=== PATIENT | female | born 1940 | race Caucasian/White ===

== ENCOUNTER 2018-06-17 06:48 | Emergency (ER) | payer BC, MEDICARE ==
[2018-06-17 06:55] VITALS: BP 155/59; PULSE 68; RESP 18; TEMP 97.8
--- NOTE | 2018-06-17 07:30 | ED ---
General Adult HPI - General Chief complaint: Fall Stated complaint: FALL Time Seen by Provider: 06/17/18 07:23 Source: patient, family, RN notes reviewed Mode of arrival: ambulatory Limitations: no limitations - History of Present Illness Initial comments: Patient is a pleasant 78-year-old female presenting to the emergency department following a fall. Incident occurred last night prior to going to bed. Patient tripped on her sweater. Patient has taken ibuprofen and iced forearm with improvement of symptoms. Patient is able to move her arm. Discomfort is essentially right upper arm. Patient states she may have slightly struck her head. Patient has not noticed any swelling. No loss of consciousness. No confusion. No weakness. No visual change. No speech problems. Patient does not take any blood thinners. - Related Data Home Medications Medication Instructions Recorded Confirmed ARIPiprazole [Abilify] 30 mg PO HS@209911/22/15 06/17/18 Acetaminophen Tab [Tylenol] 500 mg PO BID PRN 11/22/15 06/17/18 Aspirin [Adult Low Dose Aspirin EC] 81 mg PO DAILY@0911/22/15 06/17/18 Carvedilol [Coreg] 6.25 mg PO DAILY@89911/22/15 06/17/18 Clotrimazole Cream [Lotrimin Cream] 1 applic TOPICAL BID@899,209911/22/15 Escitalopram [Lexapro] 10 mg PO DAILY@169911/22/15 06/17/18 Furosemide [Lasix] 40 mg PO DAILY@0911/22/15 06/17/18 Glimepiride [Amaryl] 2 mg PO BID@0900,169911/22/15 06/17/18 Hydrocortisone Cream 1 applic TOPICAL Q48H PRN 11/22/15 06/17/18 [Hydrocortisone 2.5% Cream] Melatonin 10 mg PO HS@209911/22/15 06/17/18 Simvastatin [Zocor] 20 mg PO HS@209911/22/15 06/17/18 amLODIPine [Norvasc] 10 mg PO DAILY@0900 11/22/15 06/17/18 metFORMIN HCL 1,000 mg PO BID@0900,1700 11/22/15 06/17/18 Sodium Bicarbonate 650 mg PO TID@0900,1700,2100 12/14/15 06/17/18 Cholecalciferol [Vitamin D3] 1,000 unit PO DAILY 12/30/15 06/17/18 Pioglitazone HCl [Actos] 30 mg PO DAILY 12/30/15 06/17/18 Previous Rx's Medication Instructions Recorded Ceftaroline Fosamil [Teflaro] 300 mg IVPB Q12H #26 bag 01/10/16 Allergies Allergy/AdvReac Type Severity Reaction Status Date / Time No Known Allergies Allergy Verified 06/17/18 06:56 Review of Systems ROS Statement: Those systems with pertinent positive or pertinent negative responses have been documented in the HPI. ROS Other: All systems not noted in ROS Statement are negative. Constitutional: Denies: fever Eyes: Denies: eye pain ENT: Denies: ear pain Respiratory: Denies: cough Cardiovascular: Denies: chest pain Endocrine: Denies: fatigue Gastrointestinal: Denies: abdominal pain Genitourinary: Denies: dysuria Musculoskeletal: Denies: back pain Skin: Denies: rash Neurological: Denies: headache, weakness, confusion, abnormal gait Past Medical History Past Medical History: Dementia, Diabetes Mellitus, Hyperlipidemia, Hypertension , Myocardial Infarction ([place]), Osteoarthritis (OA), Rheumatoid Arthritis (RA) Last Myocardial Infarction Date:: 1992 History of Any Multi-Drug Resistant Organisms: MRSA Date of last positivie culture/infection: 01/03/16 MDRO Source:: ABDOMEN Past Surgical History: Adenoidectomy, Appendectomy, Bowel Resection, Cholecystectomy, Ear Surgery, Heart Catheterization With Stent, Hysterectomy, Tonsillectomy Additional Past Surgical History / Comment(s): pt's family stated the pt is a paranoid schizophrenic and has no cardiac history. Past Anesthesia/Blood Transfusion Reactions: No Reported Reaction Date of Last Stent Placement:: 1992 Past Psychological History: Anxiety, Schizophrenia Smoking Status: Never smoker - Past Family History Father Family Medical History: Myocardial Infarction ([place]) Mother Family Medical History: Myocardial Infarction ([place]) General Exam Limitations: no limitations General appearance: alert, in no apparent distress Head exam: Present: atraumatic, normocephalic, normal inspection Eye exam: Present: normal appearance, PERRL ENT exam: Present: normal oropharynx Neck exam: Present: normal inspection. Absent: tenderness Respiratory exam: Present: normal lung sounds bilaterally. Absent: chest wall tenderness Cardiovascular Exam: Present: regular rate, normal rhythm GI/Abdominal exam: Present: soft. Absent: tenderness Extremities exam: Present: full ROM, tenderness (Mild tenderness right upper arm ), other (Full range of motion without discomfort. Distally extremities neurovascularly intact.) Neurological exam: Present: alert, CN II-XII intact. Absent: motor sensory deficit Psychiatric exam: Present: normal affect, normal mood Skin exam: Present: normal color Course Vital Signs 06/17/18 06:49 Temperature 97.8 F Pulse Rate 68 Respiratory 18 Rate Blood Pressure 155/59 O2 Sat by Pulse 100 Oximetry Medical Decision Making - Medical Decision Making Patient and family updated. Patient does not want a sling. Patient will continue ibuprofen and ice. - Radiology Data Radiology results: image reviewed (Right humerus x-ray reveals no acute process) Disposition Clinical Impression: Fall, Arm injury Disposition: HOME SELF-CARE Condition: Stable Instructions: Fall Prevention for Older Adults (ED), Contusion in Adults (ED) Additional Instructions: Continue ice 4 times daily for the next 2 days. Continue ibuprofen as needed. Return for increased pain, swelling, worsening symptoms or other concerns. Please follow-up with primary care physician. Is patient prescribed a controlled substance at d/c from ED?: No Referrals: Wang May MD [Primary Care Provider] - 1-2 days Time of Disposition: 08:10
--- NOTE | 2018-06-17 07:53 | XR ---
EXAMINATION TYPE: XR humerus RT DATE OF EXAM: 06/17/2018 CLINICAL HISTORY: pain COMPARISON: NONE TECHNIQUE: Frontal and lateral images of the right humerus are obtained. FINDINGS: There is no acute fracture/dislocation evident. The joint spaces appear within normal limi ts. The overlying soft tissue appears unremarkable. IMPRESSION: There is no acute fracture or dislocation.ICD 10 NO FRACTURE, INITIAL EVALUATION
== END 2018-06-17 08:16 | disposition home or self-care (01) ==
LOC: EC 06:48
DX: S49.91XA Unspecified injury of right shoulder and upper arm, initial encounter (principal); E78.5 Hyperlipidemia, unspecified; I10 Essential (primary) hypertension; E11.9 Type 2 diabetes mellitus without complications; M19.90 Unspecified osteoarthritis, unspecified site; F20.9 Schizophrenia, unspecified; F41.9 Anxiety disorder, unspecified; I25.2 Old myocardial infarction; Z79.82 Long term (current) use of aspirin; Z79.84 Long term (current) use of oral hypoglycemic drugs; Z79.899 Other long term (current) drug therapy; Z86.14 Personal history of Methicillin resistant Staphylococcus aureus infection; W01.0XXA Fall on same level from slipping, tripping and stumbling without subsequent striking against object, initial encounter; Y92.009 Unspecified place in unspecified non-institutional (private) residence as the place of occurrence of the external cause
CPT/HCPCS: 99283